=== PATIENT | female | born 1970 | race Caucasian/White ===

== ENCOUNTER 2017-07-08 13:15 | Emergency (ER) | payer OTHER ==
[~2017-07-08] VITALS: Ht 162.6 cm; Wt 51.0 kg
[2017-07-08] MEDS ORDERED: LIDOcaine 1% 30ml vial SQ STA (13:59)
[2017-07-08] MEDS ORDERED: TETanus/Pertussis (Acell)/Diphther VAC/PF (Tdap-Adult) 0.5ml syringe IM ONE (14:00)
[2017-07-08] MEDS ORDERED: cephalexin 250mg capsule PO ONE (14:40)
[2017-07-08] MEDS ORDERED: HYDR-569 PO (16:03)
[2017-07-08] MEDS ORDERED: CEPH-572 PO (16:03)
[2017-07-08 16:25] VITALS: BP 114/78
== END 2017-07-08 16:28 | disposition home or self-care (01) ==
LOC: ER 13:16
DX: S92.422B Displaced fracture of distal phalanx of left great toe, initial encounter for open fracture (principal); S91.212A Laceration without foreign body of left great toe with damage to nail, initial encounter; W19.XXXA Unspecified fall, initial encounter; Y93.89 Activity, other specified; Y92.89 Other specified places as the place of occurrence of the external cause; Y99.8 Other external cause status
CPT/HCPCS: 11760; 73630; 90471; 90715; 99284; A6255; A6449; J3490; L3260

== ENCOUNTER 2017-07-15 14:07 | Emergency (ER) | payer OTHER ==
[~2017-07-15] VITALS: Ht 5367.7 cm; Wt 51.0 kg
[~2017-07-15 14:07] MED LIST: CEPH-572 PO; HYDR-569 PO
[2017-07-15] MEDS ORDERED: SULF1TAB49 PO (16:08)
[2017-07-15 16:42] VITALS: BP 140/79
== END 2017-07-15 16:44 | disposition home or self-care (01) ==
LOC: ER 14:08
DX: L03.032 Cellulitis of left toe (principal)
CPT/HCPCS: 99283

== ENCOUNTER 2017-08-05 09:33 | Emergency (ER) | payer OTHER ==
[~2017-08-05] VITALS: Ht 165.1 cm; Wt 52.0 kg
[~2017-08-05 09:33] MED LIST changes: -CEPH-572 PO
[2017-08-05] MEDS ORDERED: bacitracin 15gm ointment TP ONE (10:40)
[2017-08-05] MEDS ORDERED: fluconazole 100mg tablet PO ONE (10:40)
[2017-08-05] MEDS ORDERED: CEPH-572 PO (10:42)
[2017-08-05 11:05] VITALS: BP 158/95
== END 2017-08-05 11:08 | disposition home or self-care (01) ==
LOC: ER 09:33
DX: S99.921D Unspecified injury of right foot, subsequent encounter (principal); Z79.899 Other long term (current) drug therapy; W22.03XD Walked into furniture, subsequent encounter
CPT/HCPCS: 73660; 99284